=== PATIENT | female | born 1935 | race Caucasian/White ===

== ENCOUNTER → 2017-06-28 | Outpatient (CLI) | payer MEDICARE, BC ==
[~2017-06-28] MED LIST: AQUAPHOR OINTM396 GM TP; ASPIRIN E.C. 8181 MG PO; COLACE100 M1 PO; DEMADEX 20MG20 M1 PO; DULCOLAX10 M1 RC; FLEET ENEM1 BOT/133 RC; HYDRALAZINE HYD50 MG PO; ISORDIL 20MG20 MG; LEVEMIR100 U/M1 SQ; LOPERAMIDE2 M2 PO; MELATIN 3 MG-11 TAB PO; MIRAPEX0.125 M1 PO; NAMENDA10 MG PO; NEURONTIN300 M1 PO; NYSTATIN CREAM15 GM TP; PROTONIX TR40 M1 PO; TYLENOL 500MG500 MG PO; VITAMIN D 1001000 IU PO; ZYLOPRIM 100MG100 MG PO; [UNRECOGNIZED DRUG - OTHER] PO
== END ==
LOC: LAB 04:55
DX: I50.32 Chronic diastolic (congestive) heart failure (principal); E11.9 Type 2 diabetes mellitus without complications

== ENCOUNTER → 2017-07-02 | Outpatient (CLI) | payer MEDICARE, BC | LOC: LAB 09:15 | DX: I50.32 Chronic diastolic (congestive) heart failure (principal); E11.9 Type 2 diabetes mellitus without complications ==

== ENCOUNTER → 2017-07-09 | Outpatient (REF) ==
[2017-07-02 15:00] VITALS: BP 144/63
== END ==
LOC: LAB 06:10
DX: Z01.89 Encounter for other specified special examinations (principal)

== ENCOUNTER → 2017-08-16 | Outpatient (CLI) | payer MEDICARE, BC ==
[2017-07-02 15:00] VITALS: BP 144/63
[2017-08-16 05:57] LABS: HEMATOCRIT 37.3 % (37.0-47.0); HEMOGLOBIN 11.6 g/dL (12.5-16.0); MEAN PLATELET VOLUME 11.1 fl (7.4-10.4); RED CELL DISTRIBUTION WIDTH 16.4 % (11.5-14.5); WHITE BLOOD COUNT 5.1 K/mm3 (4.8-10.8)
[2017-08-16 06:29] LABS: ALBUMIN 3.6 g/dL (3.5-5.0); BUN/CREATININE RATIO 17.9 (6.0-26.0); CALCIUM 9.8 mg/dL (8.4-10.2); POTASSIUM 4.7 mmol/L (3.6-5.0); TOTAL BILIRUBIN 0.8 mg/dL (0.2-1.3); TOTAL PROTEIN 7.4 g/dL (6.3-8.2)
== END ==
LOC: LAB 05:30
PROVIDERS: Internal Medicine
DX: I35.0 Nonrheumatic aortic (valve) stenosis (principal); E11.319 Type 2 diabetes mellitus with unspecified diabetic retinopathy without macular edema; I25.10 Atherosclerotic heart disease of native coronary artery without angina pectoris

== ENCOUNTER 2017-09-10 17:39 | Emergency (ER) | payer MEDICARE, BC ==
[~2017-09-10] VITALS: Wt 91.8 kg
[~2017-09-10 17:39] MED LIST changes: -ARICEPT10 M1 PO; -NOVOLOG 100U100 U/ML; -NYSTATIN POWDER30 GM; -PEPCID 20MG TAB20 MG PO; -PROAIR HFA0.09 MG/AC IH; -VITAMIN B122500 MC1 PO
[2017-09-10] MEDS ORDERED: ARICEPT10 M1 PO (18:08)
[2017-09-10] MEDS ORDERED: MIRAPEX0.125 M1 PO (18:24)
[2017-09-10] MEDS ORDERED: NYSTATIN POWDER30 GM (18:26)
[2017-09-10] MEDS ORDERED: NOVOLOG 100U100 U/ML (18:26)
[2017-09-10] MEDS ORDERED: PEPCID 20MG TAB20 MG PO (18:27)
[2017-09-10] MEDS ORDERED: PROAIR HFA0.09 MG/AC IH (18:28)
[2017-09-10] MEDS ORDERED: VITAMIN B122500 MC1 PO (18:29)
[2017-09-10 18:54] LABS: EOS # 0.1 (0.04-0.40); EOS % 1.6 % (1.0-5.0); HEMATOCRIT 37.9 % (37.0-47.0); HEMOGLOBIN 11.9 g/dL (12.5-16.0); LYMPH# 1.1 (1.50-4.00); MEAN CELL VOLUME 92 fl (78-100); MEAN CORPUSCULAR HEMOGLOBIN 29 pg (27-31); MEAN CORPUSCULAR HGB CONC 31 g/dL (33-37); MONO # 0.3 (0.20-0.80); NEU # 3.6 (1.40-6.50); PLATELET COUNT 114 K/mm3 (130-400); RED BLOOD COUNT 4.11 M/mm3 (4.10-5.30); RED CELL DISTRIBUTION WIDTH 16.6 % (11.5-14.5); WHITE BLOOD COUNT 5.1 K/mm3 (4.8-10.8)
[2017-09-10 19:02] LABS: ALBUMIN 3.7 g/dL (3.5-5.0); BUN/CREATININE RATIO 14.8 (6.0-26.0); CALCIUM 9.6 mg/dL (8.4-10.2); POTASSIUM 4.2 mmol/L (3.6-5.0); TOTAL BILIRUBIN 0.8 mg/dL (0.2-1.3)
[2017-09-10 19:14] LABS: STREP SCREEN NEGATIVE (NEGATIVE)
[2017-09-10 19:21] LABS: URINE APPEARANCE CLEAR; URINE COLOR YELLOW
[2017-09-10 19:24] LABS: URINE BILIRUBIN NEGATIVE (NEGATIVE); URINE BLOOD TRACE (NEGATIVE); URINE GLUCOSE NEGATIVE (NEGATIVE); URINE KETONE NEGATIVE (NEGATIVE); URINE LEUKOCYTE ESTERASE NEGATIVE (NEGATIVE); URINE NITRATE NEGATIVE (NEGATIVE); URINE PROTEIN(semi-quant) TRACE mg/dL (NEGATIVE); URINE UROBILINOGEN NORMAL (NORMAL); URINE WBC 0-1 /hpf (0-3)
[2017-09-10 20:11] VITALS: BP 125/46
== END 2017-09-10 20:24 | disposition home or self-care (01) ==
LOC: ED 17:39
PROVIDERS: Nurse Practitioner Primary Care
DX: R50.9 Fever, unspecified (principal); R53.81 Other malaise; R06.02 Shortness of breath; E11.9 Type 2 diabetes mellitus without complications; Z79.4 Long term (current) use of insulin; F03.90 Unspecified dementia, unspecified severity, without behavioral disturbance, psychotic disturbance, mood disturbance, and anxiety; G25.81 Restless legs syndrome; I48.91 Unspecified atrial fibrillation; Z79.82 Long term (current) use of aspirin
CPT/HCPCS: A4353

== ENCOUNTER → 2017-09-10 | Outpatient (CLI) | payer MEDICARE, BC ==
[2017-07-02 15:00] VITALS: BP 144/63
[~2017-09-10] MED LIST changes: +ARICEPT10 M1 PO; +NOVOLOG 100U100 U/ML; +NYSTATIN POWDER30 GM; +PEPCID 20MG TAB20 MG PO; +PROAIR HFA0.09 MG/AC IH; +VITAMIN B122500 MC1 PO
[2017-09-10 07:17] LABS: BUN/CREATININE RATIO 15.6 (6.0-26.0); CALCIUM 9.6 mg/dL (8.4-10.2); POTASSIUM 4.3 mmol/L (3.6-5.0)
== END ==
LOC: LAB 06:15
PROVIDERS: Internal Medicine
DX: I50.32 Chronic diastolic (congestive) heart failure (principal); E11.9 Type 2 diabetes mellitus without complications

== ENCOUNTER → 2017-11-15 | Outpatient (CLI) | payer MEDICARE, BC, MEDICAID ==
[~2017-11-15] MED LIST changes: +ARICEPT10 M1 PO; +NOVOLOG 100U100 U/ML; +NYSTATIN POWDER30 GM; +PEPCID 20MG TAB20 MG PO; +PROAIR HFA0.09 MG/AC IH; +VITAMIN B122500 MC1 PO
== END ==
LOC: MAMMO 08:30
DX: Z12.31 Encounter for screening mammogram for malignant neoplasm of breast (principal)

== ENCOUNTER → 2018-01-15 | Outpatient (CLI) | payer MEDICARE, BC, MEDICAID ==
[2018-01-15 22:21] LABS: URINE APPEARANCE CLOUDY; URINE BILIRUBIN NEGATIVE (NEGATIVE); URINE BLOOD 50 ery/uL (NEGATIVE); URINE COLOR YELLOW; URINE GLUCOSE NEGATIVE (NEGATIVE); URINE KETONE NEGATIVE (NEGATIVE); URINE LEUKOCYTE ESTERASE TRACE (NEGATIVE); URINE NITRATE NEGATIVE (NEGATIVE); URINE PROTEIN(semi-quant) TRACE mg/dL (NEGATIVE); URINE UROBILINOGEN NORMAL (NORMAL)
[2018-01-15 22:23] LABS: URINE MUCUS PRESENT (NOT PRESENT)
== END ==
LOC: LAB 15:47
PROVIDERS: Psychiatry & Neurology Neurology
DX: R41.0 Disorientation, unspecified (principal)

== ENCOUNTER → 2018-01-16 | Outpatient (CLI) | payer MEDICARE, BC, MEDICAID ==
[2018-01-16 17:47] LABS: URINE APPEARANCE HAZY; URINE COLOR YELLOW
[2018-01-16 17:48] LABS: URINE BILIRUBIN NEGATIVE (NEGATIVE); URINE BLOOD 50 ery/uL (NEGATIVE); URINE GLUCOSE NEGATIVE (NEGATIVE); URINE KETONE NEGATIVE (NEGATIVE); URINE LEUKOCYTE ESTERASE 1+ (NEGATIVE); URINE NITRATE NEGATIVE (NEGATIVE); URINE PROTEIN(semi-quant) TRACE mg/dL (NEGATIVE); URINE UROBILINOGEN NORMAL (NORMAL); URINE WBC >50 /hpf (0-3)
[2018-01-16 17:50] LABS: URINE MUCUS PRESENT (NOT PRESENT)
== END ==
LOC: LAB 16:01
PROVIDERS: Internal Medicine
DX: R39.9 Unspecified symptoms and signs involving the genitourinary system (principal); R82.71 Bacteriuria

== ENCOUNTER → 2018-01-23 | Outpatient (CLI) | payer MEDICARE, BC, MEDICAID ==
[2018-01-23 21:18] LABS: URINE APPEARANCE CLEAR; URINE BILIRUBIN NEGATIVE (NEGATIVE); URINE BLOOD TRACE (NEGATIVE); URINE COLOR YELLOW; URINE GLUCOSE NEGATIVE (NEGATIVE); URINE KETONE NEGATIVE (NEGATIVE); URINE LEUKOCYTE ESTERASE NEGATIVE (NEGATIVE); URINE NITRATE NEGATIVE (NEGATIVE); URINE PROTEIN(semi-quant) NEGATIVE (NEGATIVE); URINE UROBILINOGEN NORMAL (NORMAL); URINE WBC 0-1 /hpf (0-3)
== END ==
LOC: LAB 19:43
PROVIDERS: Internal Medicine
DX: R41.82 Altered mental status, unspecified (principal); Z88.8 Allergy status to other drugs, medicaments and biological substances; Z91.041 Radiographic dye allergy status

== ENCOUNTER → 2018-01-26 | Outpatient (CLI) | payer MEDICARE, BC, MEDICAID ==
[2018-01-26 08:03] LABS: URINE APPEARANCE CLEAR; URINE BILIRUBIN NEGATIVE (NEGATIVE); URINE BLOOD TRACE (NEGATIVE); URINE COLOR YELLOW; URINE GLUCOSE NEGATIVE (NEGATIVE); URINE KETONE NEGATIVE (NEGATIVE); URINE LEUKOCYTE ESTERASE NEGATIVE (NEGATIVE); URINE NITRATE NEGATIVE (NEGATIVE); URINE PROTEIN(semi-quant) NEGATIVE (NEGATIVE); URINE UROBILINOGEN NORMAL (NORMAL)
== END ==
LOC: LAB 06:30
PROVIDERS: Internal Medicine
DX: N39.0 Urinary tract infection, site not specified (principal)